=== PATIENT | female | born 1940 | race Caucasian/White ===

== ENCOUNTER 2023-12-31 14:54 | Outpatient (CLI) | payer MEDICARE, SELFPAY | END 2023-12-31 14:55 | disposition home or self-care (01) | LOC: ANHAUDASC 14:54 | PROVIDERS: PCP Nurse Practitioner Family; Visit Provider Nurse Practitioner Family | DX: H90.3 Sensorineural hearing loss, bilateral (principal); Z97.4 Presence of external hearing-aid | CPT/HCPCS: 92557; 92567 ==

== ENCOUNTER 2024-03-08 14:00 | Outpatient (RCR) | payer SELFPAY | END 2024-03-19 23:59 | disposition home or self-care (01) | LOC: ANHAUDASC 14:00 | DX: Z46.1 Encounter for fitting and adjustment of hearing aid (principal) | CPT/HCPCS: 99199; V5014 ==

== ENCOUNTER 2024-04-27 13:29 | Outpatient (CLI) | payer MEDICARE, SELFPAY ==
--- NOTE | ~2024-04-27 | MR_ITS ---
EXAMINATION: MR brain/brain stem wo/w con DATE: 04/27/2024 14:26 INDICATION: Unspecified dementia, unspecified severity. TECHNIQUE: Magnetic resonance imaging (MRI) of the brain and brainstem was performed without and with 11 mL Multihance intravenous contrast. Sequences included sagittal and axial T1-weighted SE, axial d iffusion-weighted FS SE, axial 3D SWAN, axial T2-weighted FLAIR, and axial T2-weighted FSE. Postcontr ast axial and coronal T1-weighted SE was obtained. Apparent diffusion coefficient (ADC) maps were cre ated. COMPARISON: None. FINDINGS: There is magnetic field artifact which obscures portions of the left anterior cranial fossa on the di ffusion weighted and susceptibility weighted imaging. There are no areas of restricted diffusion to s uggest acute infarction. No intracranial hemorrhage or abnormal intracranial mass lesion. There are s cattered areas of nonspecific increased T2-weighted signal intensity in the cerebral white matter, pr edominantly involving the deep and periventricular white matter. There are no intraparenchymal signal abnormalities seen on the other pulse sequences. The ventricles are symmetric and normal in size. Th ere are no abnormal extra-axial fluid collections. Flow voids are seen in the cerebral arteries on th e T2-weighted sequences consistent with their expected patency. Mild mucosal thickening the bilateral ethmoid sinuses. Visualized orbits and soft tissues are unremarkable. There are no areas of abnormal enhancement on the post contrast images. IMPRESSION: 1. No acute intracranial process or abnormally enhancing brain lesions. 2. Small amount scattered mesenteric white matter T2 hyperintensity which within normal limits for ag e and likely sequela of chronic small vessel ischemic disease. Reviewed, dictated and finalized at location A. IMPRESSION: 1. No acute intracranial process or abnormally enhancing brain lesions. 2. Small amount scattered mesenteric white matter T2 hyperintensity which withi n normal limits for age and likely sequela of chronic small vessel ischemic dis ease.
== END 2024-04-27 13:30 | disposition home or self-care (01) ==
PROVIDERS: PCP Nurse Practitioner Family; Visit Provider Nurse Practitioner Family
DX: F03.90 Unspecified dementia, unspecified severity, without behavioral disturbance, psychotic disturbance, mood disturbance, and anxiety (principal)
CPT/HCPCS: 70553; A9577

== ENCOUNTER 2024-07-11 10:00 | Outpatient (RCR) | payer MEDICARE, SELFPAY ==
--- NOTE | 2024-06-01 15:32 | STOPEVAL1 ---
Assessment and note entered by Talisha Regan BEVERAGE STEWARD Evaluation Information Assessment Status Evaluation ICD-10 Condition Codes (ST) R13.1 Subjective Information The patient reports that she has a little bit of trouble swallowing and choking. She stated that she noticed difficulty after a new bridge was placed and her bite was different and she was choking on lettuce. She stated that she has had the bite adjusted and that is better but not like normal. She states that she gets choked a lot on her own saliva and possibly post nasal drip that accumulates in her throat. She reports that she has to get up in the middle of the night and drink water because I can't swallow. Patient also reports that she has been losing weight for the last several months, perhaps 5-10 pounds. She stated that that her friend told her to set a timer to remind her to eat every two hours. She indicated that she does not set an alarm but has been making an effort to eat more frequently. Reported Pain Level Pain Score 0: Self Report Assessment ST Clinical Summary BEDSIDE SWALLOW EVALUATION This patient was seen for a Bedside Swallow Evaluation at the request of her physician secondary to her complaints of coughing and choking when eating and drinking. She reports several issues have affected her swallowing, 1. a change in the structure of her dentition due to bridge work that has resulted in misalignment of her teeth, resolving, and 2. the diagnosis of dementia with memory issues have contributed to depression and loss of appetite. She reports she is trying to make a concerted effort to consume food with calories/protein, such as roast with vegetables in order to increase caloric intake and strength. Today the patient consumed water per cup, applesauce per spoon, and brenda cracker. At first expressed she did not want to drink water from the tap, stating she only drinks, spring water, but agreed to take a sip and immediately coughed on it. She exhibited no difficulty swallowing the other consistencies. Patient was instructed in the use of small sips and head flexion and asked to drink another sip of water with head flexion and that did prevent a cough. Treatment session: Patient was instructed about normal and abnormal swallowing using verbal, written, and gestural cues and models. She was then instructed in a variety of safe swallowing techniques including head flexion, small bites and sips, use the knife and fork to cut food into smaller, thumbnail size pieces, use moisture such as gravy, soups to add moisture to dry foods such as meat, avoid [id number] foods until more comfortable with them. She voiced understanding of safe swallowing guidelines. Patient was instructed in the use of swallowing strengthening exercises including hard, effortful swallows with and without chin tuck against resistance and one laryngeal elevation exercise to be completed between now and next session. Since patient was observed to cough as she had described, continuing Speech Therapy 1-2 times weekly is recommended to further address additional swallowing exercises and to modify and mold safe swallowing behavior. Patient voiced understanding and is in agreement with recommendations. Patient also requested an evaluation of her cognitive skills with possible treatment. Cognition will be assessed next session and additional goals may be added to her treatment goals in order to address any issues. Thank you for this referral. Plan of Care Interventions Treatment of Swallowing D ST Services Indicated Yes Treatment Frequency and 1-2x weekly for 8 visits Duration These treatments will address the objective and functional deficits as defined above. The patient will be advanced safely and appropriately in order for the patient to progress towards his/her prior level of function. Additional exercises will be introduced and as well as a comprehensive home exercise program upon discharge, if needed, ?to ensure carryover of functional gains achieved in the clinic. This treatment plan has been reviewed and agreement upon by the patient.
--- NOTE | 2024-06-01 15:33 | OPREHPOC ---
Outpatient Therapy Plan of Care This is a Multidisciplinary Plan of Care that may contain components documented by all disciplines (PT, OT, and ST.) ST Goal 1 Goal / Goal Update 1.Patient will voice and demonstrate understanding of anatomy and physiology related to swallowing impairment, cognitive impairment, treatment plan, home exercise program, compensatory programs, and risks and benefits related to direct Speech Therapy tasks. Target Visit [address] Problem #[address] Goal 1 Goal / Goal Update 1. Patient will demonstrate safe oral feeding for Regular Diet and Regular Liquid consistencies. 2. Patient will develop compliance with swallowing guidelines with independence/minimal cueing. 3. The patient will receive a copy of evidence- based exercises for swallow improvement to complete 10x2/day outside of therapy visits. 4. Patient will complete laryngeal elevation exercises 10 reps each with good strength to reduce laryngeal penetration and/or pyriform sinus residue by improving epiglottal inversion and airway protection. 5. Patient will complete base of tongue retraction exercises 10 reps each with good strength in order to reduce/eliminate instances of aspiration during the swallow and assist with pharyngeal clearing. 6. Patient will complete chin tuck against resistance with and without swallows in order to increase the strength of the swallow for improved airway protection 10+ repetitions. Target Visit [address] Problem #[address] Goal 1 Goal / Goal Update 1. Assess patient's cognitive skills in order to determine need for direct therapy; set up goals and offer strategies to assist with cognition. Target Visit 8
--- NOTE | 2024-06-14 16:54 | PCSTNOTE ---
A session last week, week of 06/05 was cancelled as we had not received authorization to continue. Yesterday, week of 06.13, Luciana, clerical, called patient's house and left message that therapy had been approved and that she was authorized to come and patient did not show and did not return call.
--- NOTE | 2024-06-15 12:07 | PCSTNOTE ---
Therapist called patient's number and received voicemail; left v/m informing patient that she has an 11:00 appointment today and would she be coming. Left number. Patient did not call back or contact OP department. Therapist called daughter's number in [place] and l/m to return call, which she did about ten minutes later. Therapist informed daughter that patient has not been attending this week's sessions. She stated she had not talked to mother since last week. She stated she would call mother this evening and talk about ST and contact this therapist to let me know if patient would be returning to ST sessions.
--- NOTE | 2024-07-04 12:01 | PCSTNOTE ---
The patient treatment was not able to be completed on 07/04 due to patient no show/no call. Will plan to continue treatment per plan of care.
--- NOTE | 2024-07-11 12:43 | STOPDC ---
Assessment and note entered by Talisha Regan, INSTITUTION LIBRARIAN Reported Pain Level Pain Score 0: Self Report Assessment ST Clinical Summary SPEECH THERAPY DISCHARGE SUMMARY AND TREATMENT SUMMARY Patient was seen for a Bedside Swallow Evaluation and then a Cognitive Evaluation and then five treatment sessions. Patient was instructed in the use of swallowing strengthening exercises and safe swallowing strategies. She reported that she was completing the exercises consistently until last week () and denies getting choked on her own saliva and/or food and liquid. Today she drank her flavored water using head flexion independently and no cough was noted. Of concern is patient's cognitive skills/memory at this time. An evaluation found minimal difficulty even with immediate recall of lengthy and complex information, however patient reports and admits to functional memory deficits at home. During one session, patient reported her daughter sent her a jacket from a store; she stated that she decided it was the wrong size, so she went to the same store locally and bought two of two different sizes for her roommate. The roommate decided she did not like the jacket so patient stated she returned those two to the store and now she cannot find her own jacket after she went out and bought pants and a top to go with the jacket (in spite of not having the jacket with her to match when shopping). During that session, patient decided that her jacket must be in the roommates large closet. The next session patient stated her roommate told her that she had returned both the roommate's (one jacket) and patient's own jacket to the store because it did not fit right and she did not remember that she had returned her own jacket, nor did she remember if she had purchased one or two jackets for the roommate. Today, the patient entered the Speech Therapy room and when a phone in the room dinged, patient attempted to check her phone and realized she did not have it with her; she went to the front to check the chair where she was sitting and found her phone on the counter where she set it down to write a check for her co-pay. She returned with phone in hand. Patient had been instructed in the use of a variety of memory strategies in previous sessions, including repeating new information aloud, visual imagery, writing it down (i.e. appointments) and then looking at the calendar, list, notebook where she wrote information, chunking, associations, confirming with others, backtracking, patterns, and habits, and labeling. Patient in the past has verbalized understanding of how and when to use these strategies, however based on the two examples above, there is concern about patient's ability to be independent. She is discharged this date as after this visit, this therapist will be unavailable. She expressed concerns with setting up her pill box and being independent with it. She may benefit from a caregiver in the home to assist with independence in home care tasks. No further Speech Therapy at this time. Plan of Care ST Services Indicated No
== END 2024-07-11 15:03 | disposition home or self-care (01) ==
LOC: ANHST 10:00
PROVIDERS: PCP Nurse Practitioner Family; Visit Provider Nurse Practitioner Family
DX: F03.90 Unspecified dementia, unspecified severity, without behavioral disturbance, psychotic disturbance, mood disturbance, and anxiety (principal); R13.10 Dysphagia, unspecified
CPT/HCPCS: 92507; 92526; 92610

== ENCOUNTER 2024-08-31 08:23 | Outpatient (CLI) | payer OTHER, SELFPAY ==
--- NOTE | ~2024-08-31 | DEXA_ITS ---
Bone Density Report Name: LAKISHA RENTERIA Age: 84 Sex: Female Ethnicity: White Date of : 1940 Indication: postmenopausal; screening for osteoporosis; height loss; Referring Provider: YODIT NATARAJAN Study: Bone densitometry was performed. Exam Date: August 31, 2024 Accession number: [id number] Bone Density: Region BMD T-score Z-score Classification AP Spine(L1-L4) 1.019 -0.3 2.5 Normal Femoral Neck (Left) 0.741 -1.0 1.4 Normal Total Hip (Left) 0.897 -0.4 1.8 Normal Femoral Neck (Right) 0.757 -0.8 1.6 Normal Total Hip (Right) 0.965 0.2 2.4 Normal Total Hip Mean 0.931 -0.1 2.1 Normal World Health Organization criteria for BMD impression classify patients as: Normal (T-score at or above -1.0), Osteopenia (T-score between -1.0 and -2.5), or Osteoporosis (T-score at or below -2.5). 10-year Fracture Risk: FRAX not reported because: All T-scores for Spine Total, Hip Total, Femoral Neck at or above -1.0 Clinical Information Provided by Patient: Has used the following medications: Vitamin D, Calcium Patient maximum height was 63 Menopause Age: 51 Drinks caffeinated beverages Onset of menses at age 14 Number of children 4 Impression: The patient has normal bone mass. Discussion: BONE DENSITY IS ABOVE THE MINIMUM DESIRABLE LEVEL AT ALL SKELETAL SITES TESTED. This patient?s bone mineral density is above the minimum desirable level (T-score -1.0 or better) at all sites measured. The patient should follow a healthful lifestyle (good nutrition with adequate calcium and vitamin D, and appropriate weight-bearing exercise). Follow-Up: Consider repeating this study in 5 years or sooner if there is some new clinical indication. Reported by: BEBETO on 08/31/2024 9:06:00 AM. Reviewed, dictated and finalized at location [facility] LAUREANO
--- OUTSIDE RECORDS SUMMARY | 2024-08-31 08:33 | XMS_ITS | Patient Health Record ---
[facility] Organization [facility] Address [address] [place] [address] Care Team Providers Care Machine Design Engineer Name Role Phone Shaheed Taylor Primary Care Provider Allergies Allergen (clinical drug ingredient) Drug/Non Drug Allergy documented on EMR Reaction Allergy Type Onset Date Status ciprofloxacin Cipro rash Drug Allergy Act emmy Eliquis oral numbness Drug Allergy Act emmy Reason For Referral No Information Medications Medication SIG (Take, Route, Fr equency, Duration) Notes Start Date End Date Status Ocuvite Adult 50+ - Orally Active Probiotic - Orally Active Multi Vitamin Daily - 1 tablet Orally Once a day Active Vitamin C 1000 MG 1 tablet Orally Once a day Active Immunizations Vaccine Route Administration Date Status Comments Pneumococcal Conjugate PCV13 (Prevnar 13) IM Intramuscular 02/02/2019 Administered [id number] two persons medication administration verified Pneumococcal Polysaccharide PPV23 (Pneumovax 23) Unknown 11/30/2017 Administered at prior PCP Shingles ZVL (Zostavax) Unknown 01/23/2010 Administered old record Td (Tetanus and Diphtheria) 7 yrs or older Unknown 05/14/2010 Administered Tdap (Tetanus, Diphtheria and Acellular Pertussis) 7 yrs or older IM Intramuscular 03/06/2021 Administered Sabi Rajput 03/06/2021 12:12:11 PM EDT >2 person admin med verified Social History Tobacco Use: Social History Observation Description Date Details (start date - stop date) Former Smoker NA - NA Tobacco Use/Smoking Question Answer Notes Are you a former smoker When did you stop smoking? 1988 Alcohol Screen (Audit C) Question Answer Notes Did you have a drink contain ing alcohol in the past year? Yes How often did you have a dri nk containing alcohol in the past year? Monthly or less (1 point) How many drinks did you have on a typical day when you were drinking in the past year? 1 or 2 drinks (0 point) Points 1 Interpretation Negative Sexual History Question Answer Notes Had sex in the past 12 months (vaginal, oral, or anal)? Yes with Men only Use protection? No Have you ever had a Sexually transmitted disease ? No Problems Problem Type SNOMED Code ICD Code Onset Dates Problem Status W/U Status Risk Notes Problem Screening for osteoporosis (591810721) Screening for osteoporosis (Z13.820) Active confirmed Problem Breast screening requested (994445516) Breast screening (Z12.39) Active confirmed Problem Osteopenia (624293222) Osteopenia (M85.80) Active confirmed Problem Hepatitis (885503506) Hepatitis (K75.9) Active confirmed Problem 241297712 Grieving (F43.21) Active confirmed Problem 646038886 PVD (peripheral vascular disease) (I73.9) Active confirmed Problem Deep venous thrombosis (311854652) DVT (deep venous thrombosis) (I82.409) Problem resolved confirmed 09/17/18 Problem 866438849 ARMD (age related macular degeneration) (H35.30) Active confirmed Problem History of respiratory disease (512136698) Hx of respiratory failure (Z87.09) Problem resolved confirmed Problem 08234900 Bilateral hearing loss, unspecified hearing loss type (H91.93) Active confirmed Plan Of Treatment Future Test Test Name Order Date Vitamin B12 and Folate 05/05/2019 CBC with platelets and differential 04/12 Vitamin D, 25-Hydroxy 05/05/2019 Hgb A1c with eAG Estimation 05/05/2019 Lipid Panel With LDL/HDL Ratio 201 9 TSH reflex to T4F 05/05/2019 CMP14+eGFR 05/05/2019 UA with Culture Reflex 05/05/2019 FECAL GLOBIN BY IMMUNOCHEM. (MEDICARE) 0 10/30/2020 Medical (General) History Medical History History ICD Code Pheumonia heart disease Hx of respiratory failure (resolved 10/11) undefined DVT (deep venous thrombosis) (resolved 0 11/04/2020) Surgical History Surgery Date(Month/Year) Bronchoscopy (neg) 09/11/2018 multiple eye surgeries laminectomy 04/1978 tonsillectomy 07/1949 tubal ligation 08/1977 Hospitalization History Reason Date(Month/Year) pheumonia 09/06/2018
== END 2024-08-31 08:24 | disposition home or self-care (01) ==
PROVIDERS: PCP Nurse Practitioner Family; Visit Provider Nurse Practitioner Family
DX: Z78.0 Asymptomatic menopausal state (principal)
CPT/HCPCS: 77080

== ENCOUNTER 2024-11-02 15:15 | Outpatient (CLI) | payer MEDICARE, SELFPAY ==
--- NOTE | ~2024-11-02 | US_ITS ---
EXAMINATION: US carotid duplex BI DATE: 11/02/2024 16:41 CDT INDICATION: Occlusion and stenosis of carotid arteries TECHNIQUE: Grayscale, color Doppler, and pulsed Doppler images of the cervical carotid arteries were obtained. The degree of vessel stenosis is placed in one of the following categories: normal, <50%, 50-69%, >=7 0% but less than near-occlusion, near-occlusion, or total occlusion. Note that percent stenosis relative to normal distal artery lumen diameter is indirectly measured fro m velocity measurements as described originally by Iam, et al. Radiology 2003; 229:340-346 and upda litzy by Lincoln Olguin et al STROKE 2012;43(3);915-921. COMPARISON: None. FINDINGS: There is mild atherosclerosis of both carotid arteries. Peak systolic velocity (in cm/s) is detailed below RIGHT: Right common carotid artery (CCA): 66 cm/s. Right internal carotid artery (ICA) PSV: 72 cm/s. Right ICA end-diastolic velocity (EDV): 20 cm/s. Right ICA/CCA PSV ratio is 1.1. Right external carotid artery (ECA): 86cm/s. There is antegrade flow in the right vertebral artery LEFT: Left common carotid artery (CCA): 68 cm/s. Left internal carotid artery (ICA) PSV: 71 cm/s. Left ICA end-diastolic velocity (EDV): 23 cm/s. Left ICA/CCA PSV ratio is 1. Left external carotid artery (ECA): 58cm/s. There is antegrade flow in the left vertebral artery. IMPRESSION: 1. Less than 50% stenosis in the right internal carotid artery. 2. Less than 50% stenosis in the left internal carotid artery. Reviewed, dictated and finalized at location A.
--- OUTSIDE RECORDS SUMMARY | 2024-11-02 16:30 | XMS_ITS | Continuity of Care Document ---
Author Organization [facility] Address [facility] [address] [place] [address] Phone Care Team Providers Care Foot Specialist Name Role Phone Sean Martin MD Unavailable Unavailable Allergies, Adverse Reactions, Alerts Substance Reaction Status Criticality CIPROFLOXACIN HCL Active No Informa tion ciprofloxacin Active No Information Procedures Procedure Date Established Pt Intermediate Exam 2021 Ophthalmoscopy; Optic Nerve Of Macula No v OCT Retina Unilateral Or Bilateral Established Pt Intermediate Exam 2021 Ophthalmoscopy; Optic Nerve Of Macula Ma OCT Retina Unilateral Or Bilateral Established Pt Intermediate Exam Oct2020 Ophthalmoscopy; Optic Nerve Of Macula Oc t OCT Retina Unilateral Or Bilateral Oct-1 New Patient Comprehensive Exam Ophthalmoscopy; Optic Nerve Of Macula Ju Fluorescein Angiography OCT Retina Unilateral Or Bilateral Advance Directives Directive Yes / No Effective Date File Name No Information Encounters Encounter Description Practice Location Reason(s) For Visit Diagnoses Date Provider Providers Copied on Encounter [facility], [facility] [id number] [place], [place], [id number], [place] tel:[phone] [facility] macular degeneration (chief complaint) Bilateral nonexudative age-related macular degeneration, early dry stageAge-relat ed nuclear cataract, bilateral Veronica Estrada. [address] [place], [place], [id number] , [place]. tel:[phone] Referring Provider: Shaheed Taylor, [address], [place], [address]. tel:[phone] [facility] [id number] [place] [address], [id number], [place] tel:[phone] [facility] macular degeneration (chief complaint) Bilateral nonexudative age-related macular degeneration, early dry stageVitreous degeneration, bilateralAge-r elated nuclear cataract, bilateral May-0 2 Veronica Sean. [address] [place] [address], [id number] , [place]. [phone] Referring Provider: Shaheed Taylor, [address], [place], [address]. tel:[phone] [facility] [id number] [place] [address], [id number], [place] tel:[phone] [facility] macular degeneration (chief complaint) Bilateral nonexudative age-related macular degeneration, early dry stageVitreous degeneration, bilateralAge-r elated nuclear cataract, bilateral Oct-1 1 Veronica Estrada. [address] [place] [address], [id number] , [place]. [phone] Referring Provider: Shaheed Taylor, [address], [place], [address]. tel:[phone] New Patient Comprehensive Exam [facility] [id number] [place] [address], [id number], [place] tel:[phone] [facility] retinal eval (chief complaint) Bilateral nonexudative age-related macular degeneration, early dry stageVitreous degeneration, bilateralAge-r elated nuclear cataract, bilateral Binu-2 1 Veronica Estrada. [address] [place] [address], [id number] , [place]. [phone] Referring Provider: Sean Watts, [address] [place] [address], [id number] . tel:[phone] Family History Family Member Type Diagnosis Age At Onset Problem Family history of Diabetes m gallo Payers Payer name Insurance type Covered democrat ID Bhavik saldivar(s) Premier Natasha SAHNI [facility] [id number] Social History Type Description Quantity Date Captured Comments Alcohol Use Details wine Caffeine Use Details coffee and tea 1 cup per day Tobacco Use Status Current non-smoker Smoking Status Never smoker Non-Smoking Tobacco Use Details : No Details Available : No Details Available Sex Female Chief Complaint And Reason For Visit From encounter dated '05/25/2022 15:00'. macular degeneration (chief complaint). Description: The 82 year old female presents for evaluationand management of macular degeneration in both eyes. Patient states visual acuity remains the same.Denies floaters or flashes of light. Reason For Referral Reason For Referral No Information Plan Of Treatment Date Type Action Status Goal Tobacco cessation counseling completed Goal Tobacco cessation counseling completed History Of Present Illness Encounter Date Complaint History Of Prese nt Illness macular degeneration The 82 year old female presents for evaluation and management of macular degeneration in both eyes. Patient states visual acuity remains the same. Denies floaters or flashes of light. macular degeneration The 81 year old female presents for evaluation and management of macular degeneration in both eyes. Patient states that there are no new changes to report with her vision at this time. No new flashes or floaters. macular degeneration The 81 year old female presents for evaluation and management of macular degeneration in both eyes. Patient states still having a lot of difficulty reading, has to have a lot of bright light. Denies any flashing lights or floaters. retinal eval The 80 year old female presents for evaluation and management of retinal eval in both eyes. Patient states to have had trouble reading for the past couple weeks. Patient states it is harder to focus and cannot make out certain things. Patient states to have floaters in both eyes but denies light flashes. Functional Status Date Functional Assessmen t No Information Instructions Date Instruction Additional Infor mation Impression/Plan Related to Bilat eral nonexudative age-related macular degeneration, early dry stage Impression/Plan Related to Age-r elated nuclear cataract, bilateral Return in 6-8 months with Sean Ann MD for follow up exam and OCT (Macula) OPTOS. Related to Age-related nuclear cataract, bilateral Impression/Plan Related to Bilat eral nonexudative age-related macular degeneration, early dry stage Impression/Plan Related to Vitre ous degeneration, bilateral Impression/Plan Related to Age-r elated nuclear cataract, bilateral Impression/Plan Related to Bilat eral nonexudative age-related macular degeneration, early dry stage Oct Impression/Plan Related to Vitre ous degeneration, bilateral Impression/Plan Related to Age-r elated nuclear cataract, bilateral Impression/Plan Related to Bilat eral nonexudative age-related macular degeneration, early dry stage Impression/Plan Related to Vitre ous degeneration, bilateral Impression/Plan Related to Age-r elated nuclear cataract, bilateral Assessments Type Assessment Date assessment Bilateral nonexudati ve age-related macular degeneration, early dry stage assessment Age-related nuclear cataract, bi lateral impression Bilateral nonexudati ve age-related macular degeneration, early dry stage: H35.3131 impression Age-related nuclear cataract, bi lateral: H25.13 Patient Care Teams Name Effective Dates (start - stop) Status Members No Information
--- OUTSIDE RECORDS SUMMARY | 2024-11-02 16:30 | XMS_ITS | Patient Health Record ---
Author [facility] Address [address] [place] [address] Care Team Providers Care Brick Pointer Name Role Phone Shaheed Frye Primary Care Provider [phone] Allergies Allergen (clinical drug ingredient) Drug/Non Drug [...] PCV13 (Prevnar 13) IM Intramuscular 02/02/2019 Administered [id number] two persons medication administration verified Pneumococcal Polysaccharide [...] Status Risk Notes Problem Screening for osteoporosis (600980220) Screening for osteoporosis (Z13.820) Active confirmed Problem Breast screening requested (235769834) Breast screening (Z12.39) Active confirmed Problem Osteopenia (150843933) Osteopenia (M85.80) Active confirmed Problem Hepatitis (155648319) Hepatitis (K75.9) Active confirmed Problem 442972987 Grieving (F43.21) Active confirmed Problem 140158881 PVD (peripheral vascular disease) (I73.9) Active confirmed Problem Deep venous thrombosis (654791955) DVT (deep venous thrombosis) (I82.409) Problem resolved confirmed 09/17/18 Problem 186376278 ARMD (age related macular degeneration) (H35.30) Active confirmed Problem History of respiratory disease (641867025) Hx of respiratory failure (Z87.09) Problem resolved confirmed Problem 46670474 Bilateral hearing loss, unspecified hearing loss type (H91.93) Active confirmed Plan Of Treatment Future Test Test Name Order Date Vitamin B12 and Folate 05/05/2019 CBC with platelets and differential 04/12 Vitamin D, 25-Hydroxy 05/05/2019 Hgb A1c with eAG Estimation 05/05/2019 Lipid Panel With LDL/HDL Ratio 9 TSH reflex to T4F 05/05/2019 CMP14+eGFR [...]
== END 2024-11-02 15:16 | disposition home or self-care (01) ==
PROVIDERS: PCP Nurse Practitioner Family; Visit Provider Psychiatry & Neurology Neurology
DX: I65.23 Occlusion and stenosis of bilateral carotid arteries (principal)
CPT/HCPCS: 93880

== ENCOUNTER 2024-11-13 14:00 | Outpatient (RCR) | payer MEDICARE, SELFPAY ==
--- NOTE | 2024-10-19 16:35 | OPREHPOC ---
Outpatient Therapy Plan of Care This is a Multidisciplinary Plan of Care that may contain components documented by all disciplines (PT, OT, and ST.) PT Problem 1 PT Problem #1 Knowledge Deficit PT Goal 1 Goal / Goal Update [place] with HEP Target Visit 4 PT Goal 2 Goal / Goal Update Report no pain greater than 2/10 for 2 consecutive weeks Target Visit 8 PT Problem 2 PT Problem #2 Impaired Range of Motion PT Goal 1 Goal / Goal Update 1. Improve wang cervical rotation ROM to 60 degrees to improve facet glide and postural mobility 2. Improve cervical extension to 35+ degrees to improve facet glide for improve posturing Target Visit 8 PT Problem 3 PT Problem #3 Impaired Strength PT Goal 1 Goal / Goal Update 1. Improve wang periscapular strength to 4+/5 to improve postural stability for ADL performance and pain relief 2. Improve wang shoulder flexion strength to 4/5 to improve functional lifting and shoulder stability for ADLs Target Visit 8
--- NOTE | 2024-10-19 16:35 | PTOPEVAL1 ---
Assessment and note entered by Randal Chacon, PT Evaluation Information Assessment Status Evaluation ICD-10 Condition Codes (PT) Pain in right shoulder M25.511,Pain in left shoulder M25.512 Onset Chronic Subjective Information Reports that she has had chronic shoulder and neck pain for years. Denies radicular issues. She gets most of her pain with shoulder pressure and has trouble sleeping. She sleeps on her side and at times has to sleep on her back to relieve her pain . Overhead activity is very difficult. She has resorted to exercise avoidance due to pain. Reported Pain Level Pain Score 5: Self Report Assessment PT Clinical Summary Patient presents with decreased functional use of wang shoulder above 90 degree level of flexion, neck pain, spinal rigidity, and postural pain. Patient will benefit form skilled therapy to address these deficits to restore strength and ROM as part of comprehensive exercise program once mobility is improved. Plan of Care Interventions Manual Therapy,Neuro Re-education,Therapeutic Activities,Therapeutic Exercise PT Services Indicated Yes Treatment Frequency and 2x/week for 8 visits Duration These treatments will address the objective and functional deficits as defined above. The patient will be advanced safely and appropriately in order for the patient to progress towards his/her prior level of function. Additional exercises will be introduced and as well as a comprehensive home exercise program upon discharge, if needed, ?to ensure carryover of functional gains achieved in the clinic. This treatment plan has been reviewed and agreement upon by the patient.
--- NOTE | 2024-11-07 13:12 | PCPTNOTE ---
No call no show, left [facility] [place] pt to call and R/S. AKS
--- NOTE | 2024-11-13 14:49 | OPREHPOC ---
Outpatient Therapy Plan of Care This is a Multidisciplinary Plan of Care that may contain components documented by all disciplines (PT, OT, and ST.) PT Problem 1 PT Problem #1 Knowledge Deficit PT Goal 1 Goal / Goal Update [place] with HEP Target Visit 4 Progress Met PT Goal 2 Goal / Goal Update Report no pain greater than 2/10 for 2 consecutive weeks Target Visit 8 Progress Partially Met PT Problem 2 PT Problem #2 Impaired Range of Motion PT Goal 1 Goal / Goal Update 1. Improve wang cervical rotation ROM to 60 degrees to improve facet glide and postural mobility 2. Improve cervical extension to 35+ degrees to improve facet glide for improve posturing Target Visit 8 Progress Partially Met PT Problem 3 PT Problem #3 Impaired Strength PT Goal 1 Goal / Goal Update 1. Improve wang periscapular strength to 4+/5 to improve postural stability for ADL performance and pain relief 2. Improve wang shoulder flexion strength to 4/5 to improve functional lifting and shoulder stability for ADLs Target Visit 8 Progress Partially Met
--- NOTE | 2024-11-13 14:49 | PTOPDC ---
Assessment and note entered by Randal Chacon, PT Evaluation Information Assessment Status Discharge ICD-10 Condition Codes (PT) Pain in right shoulder M25.511,Pain in left shoulder M25.512 Onset Chronic Subjective Information Reports that overall her neck still stays pretty stiff and sore. Shoulders are a bit better but reaching across her body with her right shoulder still bothers her. Her band exercises have been helping and don't seem to cause her too much problem. Feels she has seem some ROM improvement. Reported Pain Level Pain Score 3: Self Report Assessment PT Clinical Summary Patient made significant progress towards longterm goals at this time. She has seen improve right cervical mobility and rotation with improved shoulder ROM. Improvement limited to left on this date. She is independent and compliant with HEP and elects to discharge at this time to independence. Plan of Care PT Services Indicated Yes
== END 2024-11-15 09:11 | disposition home or self-care (01) ==
LOC: ANHPT 14:00
PROVIDERS: PCP Nurse Practitioner Family; Visit Provider Nurse Practitioner Family
DX: M25.511 Pain in right shoulder (principal); M25.512 Pain in left shoulder
CPT/HCPCS: 97110; 97140; 97161